=== PATIENT | female | born 1990 | race Caucasian/White ===

== ENCOUNTER 2018-04-13 09:17 | Observation (INO) | payer MEDICAID ==
[2018-04-13 09:57] VITALS: BP 102/60
== END 2018-04-13 11:09 | disposition home or self-care (01) ==
LOC: MLD 09:17
PROVIDERS: ADMIT Obstetrics & Gynecology; ATTEND Obstetrics & Gynecology
DX: O26.852 Spotting complicating pregnancy, second trimester (principal); O99.89 Other specified diseases and conditions complicating pregnancy, childbirth and the puerperium; M54.5 Low back pain; Z3A.20 20 weeks gestation of pregnancy
CPT/HCPCS: 76815; G0378; Q0092; 81000

== ENCOUNTER 2021-02-09 19:58 | Emergency (ER) | payer BC, MEDICAID ==
[~2021-02-09] VITALS: Ht 165.1 cm; Wt 45.4 kg
[2021-02-09 20:05] VITALS: BP 118/77
--- NOTE | 2021-02-09 20:08 | NUR ---
TO TERRIE/Tony [facility] AMBULATORY
== END 2021-02-09 22:41 | disposition left against medical advice (07) ==
LOC: MED 19:58
DX: R21 Rash and other nonspecific skin eruption (principal); Z53.21 Procedure and treatment not carried out due to patient leaving prior to being seen by health care provider

== ENCOUNTER 2021-05-04 19:42 | Emergency (ER) | payer BC ==
[~2021-05-04] VITALS: Ht 165.1 cm; Wt 45.4 kg
[2021-05-04 20:08] VITALS: BP 118/85
--- NOTE | 2021-05-04 20:15 | NUR ---
PT AMBULATED TO RESTROOM AND BACK TO LOBBY.
--- NOTE | 2021-05-04 21:24 | NUR ---
PT AMBULATED TO BED 11
--- NOTE | 2021-05-04 21:27 | NUR ---
30/F C/C LEFT ARM NUMBNESS THAT STARTED YESTERDAY AROUND NOON. PT REPORTS "IT FEELS ACHY." WITH A SCALE OF 8/10. NO NOTED WEAKNESS, DIDACTIC INSTRUCTOR STRENGTH EQUAL, NO SLURRED SPEECH, STEADY GAIT, FACIAL SYMMETRY NOTED. DENIES HEADACHE OR DIZZINESS. PT AAOX4, PERRL. MED HX: DENIES ALLERGIES: NKA
[2021-05-04 21:35] LABS: BASOPHILS # (AUTO) 0.1 K/uL (0.00-0.22); BASOPHILS % (AUTO) 2.5 % (0.0-2.0); EOSINOPHILS # (AUTO) 0.1 K/uL (0-0.4); HEMATOCRIT 38.6 % (36-48); HEMOGLOBIN 12.7 g/dL (12.0-16.0); LYMPHOCYTES # (AUTO) 0.9 K/uL (2.5-16.5); MEAN CORPUSCULAR HEMOGLOBIN 29 pg (27-31); MEAN CORPUSCULAR HGB CONC 33 g/dL (33-37); MEAN CORPUSCULAR VOLUME 88.4 fL (80-94); MONOCYTES # (AUTO) 0.4 K/uL (0.8-1.0); MONOCYTES % (AUTO) 7.2 % (1.7-9.3); NEUTROPHILS # (AUTO) 3.6 K/uL (1.8-7.7); NEUTROPHILS % (AUTO) 70.3 % (42.2-75.2); PLATELET COUNT (AUTO) 193 K/uL (140-450); RED BLOOD CELL COUNT(AUTO) 4.37 MIL/uL (4.20-5.40); RED CELL DISTRIBUTION WIDTH 14.5 % (11.6-13.7); WHITE BLOOD COUNT (AUTO) 5.2 K/uL (4.8-10.8)
--- NOTE | 2021-05-04 21:36 | NUR ---
EKG DONE AT BEDSIDE. EKG READS SR AT 64
[2021-05-04 21:51] LABS: ANION GAP 11.6 (8-16); CARBON DIOXIDE 28.5 mmol/L (21-32); CREATININE 0.7 mg/dL (0.6-1.3); MAGNESIUM 1.9 mg/dL (1.8-2.4); PHOSPHORUS 4.1 mg/dL (2.5-4.9); POTASSIUM 3.1 mmol/L (3.5-5.1); TOTAL BILIRUBIN 0.3 mg/dL (0.0-1.0)
[2021-05-04] MEDS ORDERED: POTASSIUM CHLORIDE 10 MEQ TABER PO ONE (22:50)
--- NOTE | 2021-05-04 23:06 | NUR ---
RADIOLOGY AT BEDSIDE
--- NOTE | 2021-05-05 00:35 | NUR ---
Patient discharged with v/s stable. Written and verbal after care instructions given and explained. Patient verbalized understanding. Ambulatory with steady gait. All questions addressed prior to discharge. Advised to follow up with PMD.
[2021-05-05 00:36] VITALS: BP 118/85
== END 2021-05-05 00:35 | disposition home or self-care (01) ==
LOC: MED 19:42
DX: M79.602 Pain in left arm (principal); R20.2 Paresthesia of skin; E87.6 Hypokalemia
CPT/HCPCS: 36415; 71045; 80053; 83735; 84100; 84484; 85025; 93005; 99285